=== PATIENT | female | born 1990 | race Caucasian/White ===

== ENCOUNTER 2017-04-10 07:10 | Emergency (ER) | payer OTHER ==
[2017-04-10 08:30] LABS: #Lymphocytes 1.1 thou/uL (1.20-3.40); #Monocytes 0.1 thou/uL (0.11-0.59); #Neutrophils 5.1 thou/uL (1.40-6.50); %Basophils 0.3 % (0.0-1.0); %Eosinophils 0.1 % (0.0-10.0); %Lymphocytes 16.5 % (21.0-51.0); %Monocytes 2.3 % (0.0-10.0); %Neutrophils 80.9 % (42.0-75.0); Hemoglobin 14.9 g/dL (12.0-16.0); Mean Corpuscular HGB CONC 32.1 g/dL (32.0-36.0); Mean Corpuscular Hemoglobin 28.1 pg (27.0-31.0); Mean Corpuscular Volume 87.4 fl (81.0-99.0); Platelet Count 232 thou/uL (130-400); RBC Distribution Width 13.8 % (11.5-14.5); White Blood Cell (WBC) Count 6.3 thou/uL (4.8-10.8)
[2017-04-10 08:57] LABS: ALT (SGPT) 18 U/L (8-55); AST (SGOT) 26 U/L (5-34); Albumin 4.8 g/dL (3.5-5.0); Alkaline Phosphatase 135 U/L (40-150); Anion Gap 17 mmol/L (10-20); BUN (Urea Nitrogen) 15 mg/dL (7.0-18.7); Bilirubin, Total 0.5 mg/dL (0.2-1.2); Calc. Creatinine Clearance 0 mL/min (70-130); Calcium 10.7 mg/dL (7.8-10.44); Carbon Dioxide 22 mmol/L (22-29); Chloride 103 mmol/L (98-107); Estimated GFR-MDRD 85; Globulin 3.8 g/dL (2.4-3.5); Glucose 124 mg/dL (70-105); Lipase 39 U/L (8-78); Potassium 4.7 mmol/L (3.5-5.1); Protein, Total 8.6 g/dL (6.0-8.3); Sodium 137 mmol/L (136-145)
[2017-04-10 09:23] LABS: Bilirubin Negative (Negative); Blood, Urine Trace (Negative); Clarity CLOUDY (Clear); Glucose, Urine (Dipstick) Negative (Negative); Leukocyte Small (Negative); Nitrite Positive (Negative); Protein, Urine (Dipstick) Negative (Neg-Trace); Specific Gravity, Urine 1.035 (1.002-1.036); Urobilinogen 0.2 mg/dL (0.2-1.0)
[2017-04-10 09:26] LABS: Bacteria/HPF 4+ HPF (None Seen); Pathc Cast-AUWi Flag 1.23 (0-2.49)
[2017-04-10] MEDS ORDERED: Ketorolac Tromethamine 30 MG/ML VIAL ONE (09:27)
[2017-04-10 09:49] LABS: Hyaline Casts/LPF NONE SEEN LPF (0-3 Hyaline)
--- NOTE | 2017-04-10 10:05 | ULT ---
GALLBLADDER ULTRASOUND: History: Right upper quadrant pain. FINDINGS: Real-time imaging of the right upper quadrant shows multiple tiny echogenic foci which shows some henrietta nt shadowing compatible with some small stones. The gallbladder wall is not thickened. The common jean paul t is 4 mm. Technologist reports a positive ultrasound Stallworth sign. Visualized liver parenchyma is unr emarkable. Right kidney is normal in size and not obstructed. Pancreas is obscured. IMPRESSION: Multiple cholelithiasis with a normal caliber common duct and a positive ultrasound Stallworth sign. POS: ARI
== END 2017-04-10 12:26 | disposition home or self-care (01) ==
LOC: ERS 07:10
DX: K80.20 Calculus of gallbladder without cholecystitis without obstruction (principal)
CPT/HCPCS: 36415; 76705; 80053; 81003; 81015; 83605; 83690; 85025; 96361; 96374; J1885

== ENCOUNTER 2017-04-13 07:33 | Inpatient (IN) | payer OTHER ==
[2017-04-13] MEDS ORDERED: Ondansetron HCl/PF 4 MG/2 ML Vial ONE ×2 (07:58→14:14)
[2017-04-13 08:10] LABS: #Basophils 0.1 thou/uL (0.0-0.2); #Lymphocytes 0.9 thou/uL (1.20-3.40); #Monocytes 0.4 thou/uL (0.11-0.59); #Neutrophils 4.4 thou/uL (1.40-6.50); %Basophils 0.9 % (0.0-1.0); %Eosinophils 0.5 % (0.0-10.0); %Lymphocytes 16.1 % (21.0-51.0); %Monocytes 6.2 % (0.0-10.0); %Neutrophils 76.2 % (42.0-75.0); Hemoglobin 13.9 g/dL (12.0-16.0); Mean Corpuscular HGB CONC 31.5 g/dL (32.0-36.0); Mean Platelet Volume 9.1 fL (7.4-10.4); Platelet Count 216 thou/uL (130-400); RBC Distribution Width 13.8 % (11.5-14.5); Red Blood Cell (RBC) Count 4.98 mill/uL (4.20-5.40); White Blood Cell (WBC) Count 5.7 thou/uL (4.8-10.8)
[2017-04-13 09:02] LABS: Lipase 12015 U/L (8-78)
[2017-04-13] MEDS ORDERED: Ketorolac Tromethamine 30 MG/ML VIAL ONE (09:19)
[2017-04-13 09:47] LABS: Bilirubin Negative (Negative); Blood, Urine Negative (Negative); Clarity CLEAR (Clear); Glucose, Urine (Dipstick) Negative (Negative); Leukocyte Negative (Negative); Nitrite Negative (Negative); Protein, Urine (Dipstick) Negative (Neg-Trace); Specific Gravity, Urine 1.007 (1.002-1.036); Urobilinogen 0.2 mg/dL (0.2-1.0)
[2017-04-13 09:50] LABS: Pregnancy Test - Urine (BHCG) Negative (Negative); Pregu Control Background? CLEAR/WHITE (CLR/WHITE); Pregu Control Bar Appear? YES (CONTROL BAR); Specific Gravity 1.007 (1.002-1.036)
[2017-04-13 09:54] LABS: Albumin 4.2 g/dL (3.5-5.0)
[2017-04-13 09:55] LABS: Chloride 107 mmol/L (98-107); Sodium 141 mmol/L (136-145)
[2017-04-13 09:56] LABS: Calcium 9.2 mg/dL (7.8-10.44)
[2017-04-13 09:57] LABS: Glucose 115 mg/dL (70-105); Protein, Total 7.2 g/dL (6.0-8.3)
[2017-04-13 09:58] LABS: Anion Gap 16 mmol/L (10-20); Bilirubin, Total 3.4 mg/dL (0.2-1.2); Carbon Dioxide 22 mmol/L (22-29)
[2017-04-13 09:59] LABS: Alkaline Phosphatase 311 U/L (40-150)
[2017-04-13 10:00] LABS: Calc. Creatinine Clearance 0 mL/min (70-130); Estimated GFR-MDRD Greater than 90
[2017-04-13 10:01] LABS: BUN (Urea Nitrogen) 8 mg/dL (7.0-18.7)
[2017-04-13 10:02] LABS: ALT (SGPT) 477 U/L (8-55); AST (SGOT) 632 U/L (5-34)
[2017-04-13] MEDS ORDERED: metroNIDAZOLE 500 MG/100 ML BAG ONE (10:47)
[2017-04-13] MEDS ORDERED: Levofloxacin 500 mg/D5W 100 ml Premix Bag ONE (10:49)
--- NOTE | 2017-04-13 11:28 | ULT ---
ULTRASOUND ABDOMEN LIMITED: (RIGHT UPPER QUADRANT) Date: 04/13/17 HISTORY: 26-year-old female with right upper quadrant abdominal pain. COMPARISON: Ultrasound of 04/10/17. FINDINGS: Gallbladder: Again noted are the numerous tiny mobile gallstones, a few millimeters in size each. Nor mal wall thickness. Positive tenderness over gallbladder. Common duct: Now dilated to 8 mm caliber, whereas it was previously normal in caliber at 4 mm. Liver: Normal size and echogenicity. Diffuse mild dilation of intrahepatic ducts, new since the prior study. Pancreas: No sonographic abnormality identified. Right kidney: No hydronephrosis. IMPRESSION: 1. New finding of diffuse dilation of the biliary tree is evidence for common duct obstruction, pres umably by occult choledocholithiasis. 2. Cholelithiasis. BREONNA Lee POS: ARI
[2017-04-13] MEDS ORDERED: Ondansetron ODT 4 MG TAB ONE (12:14)
[2017-04-13] MEDS ORDERED: Sodium Chloride 0.9% 1,000 ML IV SCH (18:42)
[2017-04-13] MEDS ORDERED: Morphine 5 MG/ML SYRINGE SLOW IVP PRN ×2 (18:42→18:46)
[2017-04-13] MEDS ORDERED: Ondansetron HCl/PF 4 MG/2 ML Vial IVP PRN (18:42)
[2017-04-13] MEDS ORDERED: Ondansetron ODT 4 MG TAB SL PRN (18:42)
[2017-04-13] MEDS: D5 1/2 NS w/20 mEq KCL 1,000 ML IV SCH (20:12)
[2017-04-13] MEDS: Ondansetron HCl/PF 4 MG/2 ML Vial IVP PRN (20:59)
[2017-04-13] MEDS: Morphine 5 MG/ML SYRINGE SLOW IVP PRN (21:06)
[2017-04-14] MEDS: Morphine 5 MG/ML SYRINGE SLOW IVP PRN ×5 (00:51→18:54)
--- NOTE | 2017-04-14 02:37 | HP ---
CHIEF COMPLAINT: Right upper quadrant abdominal pain. HISTORY: This is a 26-year-old female, who is about two and a half months . While pregnan t she was having symptoms of gallbladder disease and an ultrasound did show gallstones. She has cont inued to have intermittent attacks and she had one that was fairly severe on . She came to [facility] ER, but was discharged to follow up with her primary care physician. Yesterday, the pain got much worse and she came to the emergency room, very early this morning, where she was found to have pancr eatitis. PAST MEDICAL HISTORY: Otherwise healthy. 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 MEDICATIONS: She is on no medications. ALLERGIES: To AMOXICILLIN. SOCIAL HISTORY: She is and unemployed. No tobacco or alcohol. PHYSICAL EXAMINATION: VITAL SIGNS: Temperature 98.6, pulse 64, blood pressure 125/99. GENERAL: She is awake, alert, in minimal distress. HEENT: No jaundice. LUNGS: Clear. HEART: Regular rate and rhythm. ABDOMEN: Soft. She is tender in the right upper quadrant. EXTREMITIES: Unremarkable. LABORATORY AND X-RAY FINDINGS: White count is 5.7, H and H 13 and 44, platelet count 216. Electroly shonna show an elevated glucose of 115. Her total bilirubin was 3.4, AST of 632, ALT of 477, alkaline p hosphatase of 311, lipase of 12,000. Ultrasound was repeated that showed new dilated common bile jean paul t. ASSESSMENT: Biliary pancreatitis. PLAN: Bowel rest. We will repeat the labs in the morning of having gone down, she will need any MEDICINE TEACHER , if it is better, recommend laparoscopic cholecystectomy with cholangiogram.
[2017-04-14] MEDS: D5 1/2 NS w/20 mEq KCL 1,000 ML IV SCH ×4 (04:33→23:35)
[2017-04-14 05:39] LABS: #Eosinphils 0.1 thou/uL (0.0-0.7); #Lymphocytes 2.2 thou/uL (1.20-3.40); #Monocytes 0.5 thou/uL (0.11-0.59); #Neutrophils 2.9 thou/uL (1.40-6.50); %Basophils 0.8 % (0.0-1.0); %Lymphocytes 38.5 % (21.0-51.0); %Monocytes 8.3 % (0.0-10.0); %Neutrophils 50.4 % (42.0-75.0); Hemoglobin 11.5 g/dL (12.0-16.0); Mean Corpuscular HGB CONC 31.8 g/dL (32.0-36.0); Mean Corpuscular Volume 88.1 fl (81.0-99.0); Mean Platelet Volume 8.7 fL (7.4-10.4); Platelet Count 157 thou/uL (130-400); RBC Distribution Width 13.8 % (11.5-14.5); Red Blood Cell (RBC) Count 4.09 mill/uL (4.20-5.40); White Blood Cell (WBC) Count 5.7 thou/uL (4.8-10.8)
[2017-04-14 05:48] LABS: ALT (SGPT) 295 U/L (8-55); AST (SGOT) 183 U/L (5-34); Albumin 3.5 g/dL (3.5-5.0); Alkaline Phosphatase 253 U/L (40-150); Bilirubin, Direct 0.5 mg/dL (0.1-0.3); Bilirubin, Total 0.9 mg/dL (0.2-1.2); Lipase 904 U/L (8-78); Protein, Total 5.9 g/dL (6.0-8.3)
[2017-04-14] MEDS: Ondansetron HCl/PF 4 MG/2 ML Vial IVP PRN (07:31)
[2017-04-14] MEDS ORDERED: Sodium Chloride 0.9% 10 ML ONE (07:40)
[2017-04-14] MEDS ORDERED: Levofloxacin 500 mg/D5W 100 ml Premix Bag ONE (08:49)
[2017-04-14] MEDS ORDERED: Fentanyl 100 MCG/2 ML VIAL ONE (10:32)
[2017-04-14] MEDS ORDERED: Bupivacaine 0.25% HCL 30 ML VIAL ONE (10:54)
[2017-04-14] MEDS ORDERED: Iothalamate Meglumine 60% 50 ML VIAL FS ONE (10:54)
[2017-04-14] MEDS ORDERED: Lidocaine 2% w/Epinephrine 1:200K 20 ML VIAL ONE (10:54)
[2017-04-14] MEDS ORDERED: Mag-Al 1200 mg/1200 mg/30 ML UDCUP PO PRN (11:36)
[2017-04-14] MEDS ORDERED: Dextrose 50% Abboject 50 ML SYRINGE SLOW IVP PRN (11:36)
[2017-04-14] MEDS ORDERED: Dextrose 5% in Water 1,000 ML IV PRN (11:36)
[2017-04-14] MEDS ORDERED: hydrALAZINE 20 MG/ML VIAL SLOW IVP PRN (11:36)
[2017-04-14] MEDS ORDERED: HYDROcodone/Acetaminophen 10/325 mg Tablet PO PRN (11:36)
[2017-04-14] MEDS ORDERED: Calcium Carbonate 500 MG ChewTAB PO PRN (11:36)
[2017-04-14] MEDS ORDERED: Ondansetron HCl/PF 4 MG/2 ML Vial IVP PRN (11:36)
[2017-04-14] MEDS ORDERED: Promethazine HCl 25 MG/ML VIAL IM PRN ×2 (11:36→11:47)
[2017-04-14] MEDS ORDERED: Morphine 5 MG/ML SYRINGE SLOW IVP PRN (11:36)
[2017-04-14] MEDS ORDERED: Promethazine HCl 25 MG/ML VIAL SLOW IVP PRN (11:47)
[2017-04-14] MEDS ORDERED: HYDROmorphone 2 MG/ML VIAL SLOW IVP PRN (11:47)
[2017-04-14] MEDS ORDERED: Meperidine HCl/PF 25 MG/ML VIAL SLOW IVP PRN (11:47)
--- NOTE | 2017-04-14 12:00 | OP ---
PREOPERATIVE DIAGNOSIS: Biliary pancreatitis. SURGEON: Ray Head M.D. PROCEDURE PERFORMED: Laparoscopic cholecystectomy. INDICATIONS: This is a 26-year-old female who presented to the emergency room with severe abdominal pain. Ultrasound showed cholelithiasis. She had an elevated lipase at 12,000. It came down this mo rning. She feels much better. FINDINGS: She did have an enlarged cystic duct. There was a stone actually in the cystic duct that I was able to fish out. The cholangiogram showed no filling defects, free flow into the duodenum. PROCEDURE IN DETAIL: After informed consent was obtained, the patient was taken to the operating omi m and given general endotracheal anesthesia, placed in the supine position. The abdomen was prepped and draped in the usual fashion. Local anesthesia infiltrated subcutaneously and deep and a subumbil ical incision was performed, subcu divided sharply. The fascia grasped and two stay sutures of 0 Jamie ryl placed to either side of midline. Midline incised. Digital palpation revealed no local adhesion s. A blunt 10/12 mm trocar inserted. Pneumoperitoneum was created to a pressure of 15 mmHg. A 0 deg ree laparoscope inserted. Under direct vision, three 5 mm ports placed subcostally. The gallbladder grasped and advanced superiorly. The peritoneum lysed distally to dissect out the cystic duct, cyst ic artery on critical view. A clip was placed at the base of the gallbladder and an incision was mad e in the cystic duct and a stone was found. This was fished out. Then, an Arrow cholangiocatheter w as inserted and directed into the distal cystic duct and an intraoperative cholangiogram was performe d utilizing fluoroscopy. This showed free flow into the duodenum, no filling defects. The duct was triply ligated with Hemoclips and divided. The artery triply ligated with Hemoclips and divided. Th e gallbladder removed from its fossa utilizing electrocautery, removed from the abdomen through the u mbilical port. Hemostasis assured. Trocars and retractors removed. The fascia closed with interrup atul 0 Vicryl suture. Skin closed with interrupted 4-0 Rapide. Dermabond applied. The patient nahid ated the procedure well and transferred to recovery in good condition. Sponge and needle count verif ied correct x2.
[2017-04-14] MEDS ORDERED: Ketorolac Tromethamine 30 MG/ML VIAL ONE (12:12)
[2017-04-14] MEDS ORDERED: PROPOFOL 200 MG/20 ML VIAL ONE (12:12)
[2017-04-14] MEDS ORDERED: diphenhydrAMINE 50 MG/ML VIAL ONE (12:12)
[2017-04-14] MEDS ORDERED: Lidocaine 1% PF 5 ML VIAL ONE (12:12)
[2017-04-14] MEDS ORDERED: Glycopyrrolate 0.2 MG/ML 5 ML SYRINGE ONE (12:12)
[2017-04-14] MEDS ORDERED: Dexamethasone 20 MG/5 ML VIAL ONE (12:12)
--- NOTE | 2017-04-14 13:00 | RAD ---
OPERATIVE CHOLANGIOGRAM 2 VIEWS: HISTORY: Intraoperative films. FINDINGS: These films show somewhat incomplete filling of the nondilated common bile duct with emptying into th e duodenum. No filling defects are appreciated. IMPRESSION: Unremarkable operative cholangiogram. Portions of the mid portion of the common bile duct are not we ll visualized. POS: ARI
[2017-04-14] MEDS: Famotidine 20 MG TAB PO SCH (21:09)
[2017-04-14] MEDS: Famotidine/PF 20 mg/2ml Vial SLOW IVP SCH (21:27)
[2017-04-14] MEDS: HYDROcodone/Acetaminophen 10/325 mg Tablet PO PRN (22:22)
[2017-04-15] MEDS: Morphine 5 MG/ML SYRINGE SLOW IVP PRN (00:50)
[2017-04-15] MEDS: HYDROcodone/Acetaminophen 10/325 mg Tablet PO PRN (05:59)
[2017-04-15] MEDS: D5 1/2 NS w/20 mEq KCL 1,000 ML IV SCH (06:02)
[2017-04-15 06:08] LABS: #Lymphocytes 2.5 thou/uL (1.20-3.40); #Monocytes 0.6 thou/uL (0.11-0.59); #Neutrophils 4.1 thou/uL (1.40-6.50); %Basophils 0.4 % (0.0-1.0); %Eosinophils 0.6 % (0.0-10.0); %Monocytes 8.4 % (0.0-10.0); %Neutrophils 56.5 % (42.0-75.0); Hemoglobin 11.3 g/dL (12.0-16.0); Mean Corpuscular HGB CONC 31.8 g/dL (32.0-36.0); Mean Corpuscular Hemoglobin 28.1 pg (27.0-31.0); Mean Corpuscular Volume 88.5 fl (81.0-99.0); Mean Platelet Volume 8.9 fL (7.4-10.4); Platelet Count 168 thou/uL (130-400); RBC Distribution Width 13.9 % (11.5-14.5); Red Blood Cell (RBC) Count 4.02 mill/uL (4.20-5.40); White Blood Cell (WBC) Count 7.2 thou/uL (4.8-10.8)
[2017-04-15 06:20] LABS: ALT (SGPT) 217 U/L (8-55); AST (SGOT) 81 U/L (5-34); Albumin 3.5 g/dL (3.5-5.0); Alkaline Phosphatase 213 U/L (40-150); Anion Gap 12 mmol/L (10-20); BUN (Urea Nitrogen) 6 mg/dL (7.0-18.7); Bilirubin, Total 0.4 mg/dL (0.2-1.2); Calc. Creatinine Clearance 130 mL/min (70-130); Calcium 8.9 mg/dL (7.8-10.44); Carbon Dioxide 28 mmol/L (22-29); Chloride 103 mmol/L (98-107); Estimated GFR-MDRD Greater than 90; Globulin 2.7 g/dL (2.4-3.5); Glucose 115 mg/dL (70-105); Lipase 99 U/L (8-78); Potassium 3.7 mmol/L (3.5-5.1); Protein, Total 6.2 g/dL (6.0-8.3); Sodium 139 mmol/L (136-145)
--- NOTE | 2017-04-15 07:58 | DIS ---
DISCHARGE DIAGNOSES: Symptomatic cholelithiasis, biliary pancreatitis, probable choledocholithiasis. PROCEDURES DURING ADMISSION: Right upper quadrant ultrasound, CT scan of abdomen and pelvis, and lap aroscopic cholecystectomy with cholangiogram. HOSPITAL COURSE: The patient was admitted, given IV fluids, made n.p.o., initially had a lipase of 1 2,000. The following day she felt better and it had dropped to about 800. She was taken to the oper ating room where she underwent a laparoscopic cholecystectomy with cholangiogram. There were no fill ing defects. Postoperatively, she has done well. She is tolerating a diet. Pain is controlled on p .o. medications. She is discharged home in good condition, on hydrocodone and Zofran. She will foll ow up with me in 2 weeks.
[2017-04-15 08:07] VITALS: BP 137/80; TEMP 98.7
[2017-04-15] MEDS ORDERED: Enoxaparin Sodium 40 MG/0.4 ML SYRINGE SC SCH (09:00)
[2017-04-15] MEDS: Famotidine/PF 20 mg/2ml Vial SLOW IVP SCH (11:13)
[2017-04-15] MEDS: Famotidine 20 MG TAB PO SCH (11:13)
--- NOTE | 2017-04-19 14:10 | PQF ---
TEO COTTER, BRISA Lancaster JR, MD [id number] [phone] CLINICAL DOCUMENTATION CLARIFICATION FORM: POST DISCHARGE Addendum to original discharge summary date: ____ Late entry note date: __ IF QUERY RECEIVED VIA FAX........ PLEASE DOCUMENT YOUR RESPONSE BELOW FAX RESPONSE BACK TO [phone] DATE: 04/19/17 ATTN: Dr. Head Please exercise your independent, professional judgment in responding to the clarification form. Clinical indicators are provided on the bottom of this form for your review ___ Final Diagnosis on the Pathology report: Chronic cholecystitis ___ Progress Notes indicate: Clarification of Pathology report: Please check appropriate box(s): [ ] Agree w the pathology finding of: [ ] Other explanation of pathology findings (please specify) [ ] Other diagnosis [ ] Unable to determine CLINICAL INDICATORS - SIGNS/ SYMPTOMS / LABS Biliary pancreatitis and cholelithiasis [employer] Lap cholecystectomy (This form is maintained as a part of the permanent medical record) 2014 [employer] All Rights Reserved MARZENA Gregorio, CCS [email or web address] [phone] GER[facility]
== END 2017-04-15 11:13 | disposition home or self-care (01) | DRG 419 ==
LOC: ERS 07:33 → 3SE 17:38
PROVIDERS: ADMIT Surgery; ATTEND Surgery
PROC: 0FT44ZZ Resection of Gallbladder, Percutaneous Endoscopic Approach (ICD-10-PCS; principal; 2017-04-04)
PROC: BF10YZZ Fluoroscopy of Bile Ducts using Other Contrast (ICD-10-PCS; 2017-04-04)
DX: K85.10 Biliary acute pancreatitis without necrosis or infection (principal); K80.70 Calculus of gallbladder and bile duct without cholecystitis without obstruction; R10.11 Right upper quadrant pain
CPT/HCPCS: 36415; 47532; 76705; 80053; 80076; 81003; 81015; 81025; 83605; 83690; 85025; 87040; 88304; 96361; 96365; 96368; 96374; 96375; 96376; J2270; A4216; J0131; J1100; J1200; J1885; J1956; J2001; J2405; J2704; J3010; Q0162; Q9961; S0020